=== PATIENT | male | born 1980 | race Two or more races ===

== ENCOUNTER 2020-01-26 14:35 | Inpatient (IN) | payer MEDICAID ==
[~2020-01-26] VITALS: Ht 162.6 cm; Wt 88.0 kg
[2020-01-26] MEDS ORDERED: ACETAMINOPHEN ES 500 MG TABLET PO ONE (15:00)
--- NOTE | 2020-01-26 15:00 | NUR ---
Direct bed to Negative Pressure Room. +Fever/cough/tachycardia and hypoxia. O2 sats on RA - 91% Nasal Cannula Applied
[2020-01-26 15:05] LABS: BASOPHILS % (AUTO) 0.6 % (0.0-2.0); HEMATOCRIT 49 % (39-51); HEMOGLOBIN 16.8 g/dL (13.5-17.5); LYMPHOCYTES # (AUTO) 1.1 /CMM (0.8-4.8); LYMPHOCYTES % (AUTO) 21.3 % (20.0-44.0); MEAN CORPUSCULAR HGB CONC 34 g/dl (31.0-36.0); MEAN CORPUSCULAR VOLUME 87 fL (80-96); MONOCYTES # (AUTO) 0.3 /CMM (0.1-1.30); MONOCYTES % (AUTO) 6.1 % (2.0-12.0); NEUTROPHILS # (AUTO) 3.8 /CMM (1.8-8.9); PLATELET COUNT (AUTO) 128 /CMM (150-450); RED BLOOD CELL COUNT(AUTO) 5.61 MIL/uL (4.5-6.0); WHITE BLOOD COUNT (AUTO) 5.3 K/uL (4.3-11.0)
[2020-01-26] MEDS ORDERED: ACETAMINOPHEN ES 500 MG TABLET ONE (15:10)
[2020-01-26 15:16] LABS: CALCIUM, SERUM 8.4 mg/dL (8.5-10.1); CARBON DIOXIDE 24 mmol/L (21-32); CHLORIDE 96 mmol/L (98-107); GLUCOSE 200 mg/dL (74-106); POTASSIUM 3.6 mmol/L (3.5-5.1); SODIUM SERUM 133 mmol/L (136-145); UREA NITROGEN, BLOOD 15 mg/dL (7-18)
[2020-01-26 15:26] LABS: D-DIMER 0.38 mg/L(FEU (0.17-0.50)
[2020-01-26 15:30] LABS: ALANINE AMINOTRANSFERASE 60 U/L (12-78); ALBUMIN 2.8 g/dL (3.4-5.0); ALKALINE PHOSPHATASE 86 U/L (46-116); ASPARTATE AMINOTRANSFERASE 50 U/L (15-37); B-TYPE NATRIURETIC PEPTIDE 13 PG/ML (0-125); BILIRUBIN,TOTAL 0.6 mg/dL (0.2-1.0); TOTAL PROTEIN, SERUM 7.7 g/dL (6.4-8.2)
[2020-01-26 15:43] LABS: CREATINE KINASE, TOTAL 79 U/L (39-308); FERRITIN 560 ng/mL (8-388)
[2020-01-26 15:44] LABS: C-REACTIVE PROTEIN 17.1 mg/dL (0.0-0.9)
--- NOTE | 2020-01-26 15:52 | NUR ---
PT TO CT
[2020-01-26] MEDS ORDERED: ONDANSETRON HCL/PF 4 MG/2 ML VIAL IVP PRN (16:30)
[2020-01-26] MEDS ORDERED: Z GUARD REMEDY 2 OZ OINT TP PRN (16:30)
[2020-01-26] MEDS ORDERED: ZOLPIDEM TARTRATE 5 MG TABLET PO PRN (16:30)
[2020-01-26] MEDS ORDERED: MORPHINE SULFATE INJ 2 MG/ML DISP.SYRIN IV PRN (16:30)
--- NOTE | 2020-01-26 17:02 | NUR ---
[facility] - [facility]AR KAUR - PAGED VIA EXCHANGE
[2020-01-26 17:09] LABS: APPEARANCE,URINE Slightly Cloudy (CLEAR); BILIRUBIN,URINE MODERATE (NEGATIVE); BLOOD, URINE Moderate Ery/uL (NEGATIVE); COLOR,URINE Yellow (YELLOW); KETONES,URINE 40 (NEGATIVE); LEUKOCYTE ESTERASE ,URINE Small (NEGATIVE); NITRITE, URINE Negative (NEGATIVE); PROTEIN,URINE >=300 mg/dl (NEGATIVE); UGLUCOSE Negative (NEGATIVE); UROBILINOGEN,URINE 0.2 EU/dL (0.2)
[2020-01-26 17:25] LABS: BACTERIA,URINE 1+ /HPF (None Seen); WBC,URINE 21-50 /HPF (0-3)
[2020-01-26] MEDS ORDERED: MORPHINE SULFATE INJ 4 MG/ML DISP.SYRIN ONE (17:32)
[2020-01-26] MEDS ORDERED: ONDANSETRON HCL/PF 4 MG/2 ML VIAL ONE (17:32)
--- NOTE | 2020-01-26 17:32 | NUR ---
PT STIL COMPLAINING OF ABD PAIN. MD MADE AWARE. VERBAL ORDER RECEIVED TO GIVE MORPHINE 4MG IV X 1 AND ZOFRAN 4MG IV X 1. NOTED AND WILL CARRY OUT
--- NOTE | 2020-01-26 17:38 | NUR ---
report given to Isaac RN for for continuity of care on Tele floor
--- NOTE | 2020-01-26 17:45 | NUR ---
Pt assigned to 111-2
[2020-01-26 17:46] LABS: C-REACTIVE PROTEIN 17.8 mg/dL (0.0-0.9)
[2020-01-26] MEDS ORDERED: MORPHINE SULFATE INJ 2 MG/ML DISP.SYRIN IV ONE (18:00)
[2020-01-26] MEDS ORDERED: ONDANSETRON HCL/PF - ER 4 MG/2 ML VIAL IV ONE (18:00)
--- NOTE | 2020-01-26 18:18 | NUR ---
PT TRANSPORTED TO UNIT ON GURPATERSON WITH EMT AND RN AT BEDSIDE W/ ACLS PROTOCOL.
--- NOTE | 2020-01-26 19:15 | NUR ---
RN NOTES: RECEIVED PATIENT LYING COMFORTABLY IN BED,ON OXYGEN INHALATION AT 2-3L/MIN VIA NC,NON LABORED BREATHING, ISOLATION PRECAUTION OBSERVED,A/0X3-4, ORIENTED TO UNIT AND STAFF, INSTRUCTED IF HE DO NOT FEEL OK OR ANY DISCOMFORT HE WILL LET THE NURSES KNOW, KEPT CALL LIGHT WITHIN EASY REACH.IV CANNULA RH G#20 INTACT AND PATENT WITH IVF OD NS AT 75 ML/HR ONGOING,HE REQUEST HE WANTS TO TAKE A REST, RN INSTRUCTED HIM WILL ASSESSED HIS SKIN LATER TO TAKE PICTURE OF BILATERAL LOWER EXTREMITIES BLISTER, HE SAID "YES LATER PLEASE".
[2020-01-26] MEDS: HYDROXYCHLOROQUINE 200 MG TABLET PO SCH (19:49)
[2020-01-26 20:00] VITALS: BP 114/71
--- NOTE | 2020-01-26 20:03 | NUR ---
RN NOTES: CONFIRMED WITH OUTGOING NURSE PLAQUENIL NOT YET GIVEN, FIRST DOSE GIVEN.ENOURAGE TO INCREASE FLUIDS TOLERATED.
[2020-01-26 22:00] VITALS: BP 127/77
[2020-01-27] VITALS (8 sets, daily range): BP systolic 105–127; BP diastolic 70–84
--- NOTE | 2020-01-27 01:00 | NUR ---
RN NOTES: PATIENT WAS ASSISTED TO THE BATHROOM, HE HAD WATERY STOOL, ABLE TO WALK WITH ASSIST, IV HYDRATION CONTINUED, NEEDS ATTENDED, ISOLATION PRECAUTION OBSERVED, REMAIN IN SINUS RHYTHM RATE-95.
[2020-01-27] MEDS: IV NS 0.9% 1,000 ML IV PRN ×2 (06:00→20:25)
[2020-01-27] MEDS: HYDROCODONE/APAP 5/325MG 1 EACH TABLET PO PRN ×2 (06:10→11:10)
--- NOTE | 2020-01-27 06:10 | NUR ---
RN NOTES: IVF ON NS COMPLETED AND REPLACED WITH NEW BOTTLE OF NS AT 75 ML/HR, HE HAD ANOTHER DIARRHEA(2ND TIME), ASSISTED TO THE BATHROOM, WATERY STOOL, HE COMPLAINED OF BODY ACHE AND STERNAL PAIN WHEN HE COUGH, PAIN MEDICATION GIVEN PER PATIENT REQUEST.NON PHARMACOLOGIC INTERVENTION RENDERED.
--- NOTE | 2020-01-27 06:58 | NUR ---
RN NOTES: CALLS AND NEEDS ATTENDED, KEPT RESTED, ON CLOSE WATCH, STILL WITH DIARRHEA, HYDRATED, ON HAND COLLATOR RATE-92, IVF CONTINUED, HE FEELS MUCH BETTER AFTER PAIN MEDICATION, ENDORSED FOR CONTINUITY OF CARE.
[2020-01-27 08:04] LABS: BASOPHILS % (AUTO) 0.3 % (0.0-2.0); HEMATOCRIT 48 % (39-51); HEMOGLOBIN 16.3 g/dL (13.5-17.5); LYMPHOCYTES % (AUTO) 23.4 % (20.0-44.0); MEAN CORPUSCULAR HGB CONC 34 g/dl (31.0-36.0); MEAN CORPUSCULAR VOLUME 88 fL (80-96); MONOCYTES # (AUTO) 0.3 /CMM (0.1-1.30); MONOCYTES % (AUTO) 6.9 % (2.0-12.0); NEUTROPHILS # (AUTO) 3.1 /CMM (1.8-8.9); NEUTROPHILS % (AUTO) 69.4 % (43.0-81.0); PLATELET COUNT (AUTO) 116 /CMM (150-450); RED BLOOD CELL COUNT(AUTO) 5.48 MIL/uL (4.5-6.0); WHITE BLOOD COUNT (AUTO) 4.5 K/uL (4.3-11.0)
[2020-01-27 08:19] LABS: CALCIUM, SERUM 8.3 mg/dL (8.5-10.1); CREATININE 0.9 mg/dL (0.6-1.3); MAGNESIUM 1.9 mg/dL (1.8-2.4); PHOSPHORUS 2.9 mg/dL (2.5-4.9); POTASSIUM 3.9 mmol/L (3.5-5.1)
[2020-01-27 08:59] LABS: D-DIMER 0.45 mg/L(FEU (0.17-0.50)
[2020-01-27 10:44] LABS: THYROID STIMULATING HORMONE 1.907 uIU/mL (0.358-3.74)
[2020-01-27] MEDS: HYDROXYCHLOROQUINE 200 MG TABLET PO SCH (10:52)
[2020-01-27] MEDS: PANTOPRAZOLE 40 MG TABLET.DR PO SCH (10:53)
[2020-01-27] MEDS ORDERED: POTASSIUM CHLORIDE 20 MEQ TAB.PRT.SR PO SCH (14:00)
[2020-01-27] MEDS ORDERED: DEXTROSE 50%-WATER 50 ML DISP.SYRIN IV PRN (15:00)
[2020-01-27] MEDS: METFORMIN 500 MG TABLET PO SCH (16:58)
[2020-01-27] MEDS: CEFTRIAXONE 1 G in IV D5W 50 ML IV SCH (16:58)
[2020-01-27] MEDS: BLOOD SUGAR DIAGNOSTIC 1 EACH STRIP IN SCH ×2 (17:55→21:49)
[2020-01-27] MEDS: INSULIN REGULAR, HUMAN 100 UNIT/ML 3 ML VIAL SQ PRN ×2 (18:00→21:47)
--- NOTE | 2020-01-27 19:11 | NUR ---
Handoff with night team registered nurse. Nathan Rodriguez RN
--- NOTE | 2020-01-27 20:00 | NUR ---
SEPARATOR TENDER NOTES, RECEIVED PATIENT COMFORTABLY IN BED,ON O2 AT 2-3L/MIN VIA NC,NO SOB NO DISTRESS NON LABORED BREATHING, ISOLATION PRECAUTION OBSERVED,A/0X3-4, CALL LIGHT WITHIN EASY REACH.IV CANNULA RH G#20 INTACT AND PATENT WITH IVF OF NS AT 75 ML/HR INFUSING WELL, ALL DUE MEDS GIVEN ORDERED , PTS USING URINALS , INSTRUCT PTS TO CALL FOR ASSISTANCE .KEPT PTS CLEAN DRY AND COMFORTABLE.
[2020-01-27] MEDS: ACETAMINOPHEN 325 MG TABLET PO PRN (20:16)
--- NOTE | 2020-01-27 20:16 | NUR ---
DANCE COACH NOTES PTS NOTED WITH TEMP OF 101.6 , COOLING MEASURES APPLIED AND TYLENOL 650MG VIA PO GIVEN ORDERED.WILL CONTINUE TO MONITOR PTS.
--- NOTE | 2020-01-27 21:30 | NUR ---
AUTOMOBILE SPRING REPAIRER NOTES PTS C/O OF COUGH , SPOKE TO BRANDI PATTERSON WITH ORDER JUICEITUSSIN DM Q 4HRS VIA PO PRN FOR COUGH , ORDER NOTED AND CARRIED OUT.
[2020-01-27] MEDS: GUAIFENESIN/D-METHORPHAN HB 5 ML UDC PO PRN (21:49)
--- NOTE | 2020-01-27 22:00 | NUR ---
WALLPAPER INSPECTOR NOTES RECEIVED A CALL FROM LAB SPOKE TO CHRISTINE BLOCK TESTING IS POSITIVE , CHARGE NURSE MADE AWARE AND SO WITH ELECTRONIC PREPRESS TECHNICIAN.PRECAUTIONARY MEASURES MAINTAINED.
--- NOTE | 2020-01-27 23:13 | NUR ---
WIRELESS CELLULAR TECHNICIAN NOTES BLOOD SUGAR FOR 10PM IS 187MG/DL 3 UNITS OF REGULAR INSULIN GIVEN PER SLIDING SCALE. WILL CHECK BS AGAIN IN AM.PTS OFFERED SNACK.
[2020-01-28] VITALS: BP 108/68
[2020-01-28] MEDS: GUAIFENESIN/D-METHORPHAN HB 5 ML UDC PO PRN ×2 (01:56→21:19)
[2020-01-28 04:00] VITALS: BP 103/70
--- NOTE | 2020-01-28 06:27 | NUR ---
MUSEUM TECHNICIAN NOTES PTS REMAINS ON BED ON O2 AT 3LITERS OF NC , ALL NEEDS ATTENDED TOO CALL LIGHT WITHIN REACH ,PTS IS POSITIVE COVID PRECAUTIONARY MEASURES OBSERVED AT ALL TIMES . WILL ENDORSE TO RN DAY SHIFT FOR CONTINUITY OF CARE.
[2020-01-28 07:27] LABS: D-DIMER 0.49 mg/L(FEU (0.17-0.50)
[2020-01-28] MEDS: BLOOD SUGAR DIAGNOSTIC 1 EACH STRIP IN SCH ×4 (07:37→21:29)
[2020-01-28] MEDS: INSULIN REGULAR, HUMAN 100 UNIT/ML 3 ML VIAL SQ PRN ×4 (07:39→21:19)
[2020-01-28] MEDS: PANTOPRAZOLE 40 MG TABLET.DR PO SCH (07:40)
[2020-01-28 08:00] VITALS: BP_SYST 130; BP_SYST 138; BP_DIAS 72
[2020-01-28] MEDS: METFORMIN 500 MG TABLET PO SCH ×2 (09:18→16:09)
[2020-01-28] MEDS: HYDROXYCHLOROQUINE 200 MG TABLET PO SCH (09:18)
[2020-01-28] MEDS: IV NS 0.9% 1,000 ML IV PRN (09:25)
[2020-01-28 12:00] VITALS: BP 128/68
[2020-01-28 16:00] VITALS: BP 133/76
[2020-01-28] MEDS: HYDROCODONE/APAP 5/325MG 1 EACH TABLET PO PRN (16:09)
[2020-01-28] MEDS: CEFTRIAXONE 1 G in IV D5W 50 ML IV SCH (16:10)
--- NOTE | 2020-01-28 18:55 | NUR ---
Handoff with night team registered nurse. Nathan Rodriguez RN
--- NOTE | 2020-01-28 19:30 | NUR ---
RETURNED TELEPHONE EQUIPMENT APPRAISER NOTES RECEIVED PATIENT IN BED AOX4, IN STABLE CONDITION. BREATHING NORMAL NO SOB NOTED. NO S/S OF ACUTE DISTRESS NOTED. TELE MONITOR READING SR. CONTINUES ON OXYGEN 3L/MIN VIA NC. IV SITE RH G#20 INTACT PATENT FLUSHED WELL. SAFETY MEASURES IN PLACE, BED IN LOW POSITION. CALL LIGHT WITHIN REACH. WILL CONT TO MONITOR.
[2020-01-28 20:00] VITALS: BP 102/68
[2020-01-28] MEDS: ACETAMINOPHEN 325 MG TABLET PO PRN (21:19)
--- NOTE | 2020-01-28 21:19 | NUR ---
WIRE BASKET MAKER NOTES TEMP 99.1,C/O OF COUGH. PRN TYLENOL AND ROBITUSSIN GIVEN ORDERED. WILL CONT TO MONITOR AND REASSESS. ALL SAFETY MEASURES IN PLACE. CALL LIGHT WITHIN REACH.
--- NOTE | 2020-01-28 22:19 | NUR ---
BUILDING CARPENTER NOTE MEDICATIONS WERE EFFECTIVE PATIENT RESTING COMFORTABLY NO COUGH NOTED TEMP NOTED 98.2.
[2020-01-29] VITALS (11 sets, daily range): BP systolic 99–132; BP diastolic 59–79
--- NOTE | 2020-01-29 06:07 | NUR ---
MEDICAL DIRECTOR OCCUPATIONAL HEALTH NOTES PATIENT REMAINED STABLE THROUGH OUT THE SHIFT. NO S/S OF ACUTE DISTRESS NOTED. ALL DUE MEDICATIONS WERE GIVEN ALONG WITH PRN'S ORDERED PATIENT TOLERATED WELL. CONTINUES ON OXYGEN 3L/MIN VIA NC. SAFETY MEASURES IN PLACE, BED IN LOW POSITION. CALL LIGHT WITHIN REACH. WILL ENDORSE PATIENT TO AM NURSE FOR XIMENA.
[2020-01-29 06:41] LABS: BASOPHILS % (AUTO) 0.2 % (0.0-2.0); EOSINOPHILS % (AUTO) 0.4 % (0.0-6.0); HEMATOCRIT 41 % (39-51); HEMOGLOBIN 14.1 g/dL (13.5-17.5); LYMPHOCYTES # (AUTO) 0.7 /CMM (0.8-4.8); LYMPHOCYTES % (AUTO) 13.7 % (20.0-44.0); MEAN CORPUSCULAR HGB CONC 34 g/dl (31.0-36.0); MEAN CORPUSCULAR VOLUME 87 fL (80-96); MONOCYTES # (AUTO) 0.3 /CMM (0.1-1.30); MONOCYTES % (AUTO) 4.9 % (2.0-12.0); NEUTROPHILS # (AUTO) 4.2 /CMM (1.8-8.9); NEUTROPHILS % (AUTO) 80.8 % (43.0-81.0); PLATELET COUNT (AUTO) 168 /CMM (150-450); RED BLOOD CELL COUNT(AUTO) 4.77 MIL/uL (4.5-6.0); WHITE BLOOD COUNT (AUTO) 5.2 K/uL (4.3-11.0)
[2020-01-29 06:51] LABS: ALBUMIN 2.1 g/dL (3.4-5.0); BILIRUBIN,TOTAL 0.7 mg/dL (0.2-1.0); CALCIUM, SERUM 7.9 mg/dL (8.5-10.1); CREATININE 0.7 mg/dL (0.6-1.3); MAGNESIUM 1.8 mg/dL (1.8-2.4); PHOSPHORUS 2.7 mg/dL (2.5-4.9); POTASSIUM 3.5 mmol/L (3.5-5.1); TOTAL PROTEIN, SERUM 6.6 g/dL (6.4-8.2)
--- NOTE | 2020-01-29 07:30 | NUR ---
rn notes received patient in bed, awake, a/0x4,able to make needs known. with oxygen support via nasal cannula at 3lpm, with use of accessory muscle on breathing but patient denies shortness of breath or pain of any kind. sinus rhythm on the monitor with hr on the 90s. patient able to ambulate. encourage to call for help or assistance if needed but also made aware of the isolation precautions necessary. safety measures observed and maintained. call light place within reach.
--- NOTE | 2020-01-29 09:18 | NUR ---
rn notes received call from laboratory, spoke to ivana. result for positive covid test. patient and charge nurse made aware Addendum: 01/29/20 at 1935 by JUNIOR WYNN RN patient denies shortness of breath at this time. explained to patient what are to be expected with the help of roopa (aylin umaña cna) patient verbalized understanding
[2020-01-29] MEDS: BLOOD SUGAR DIAGNOSTIC 1 EACH STRIP IN SCH ×4 (09:29→22:04)
[2020-01-29] MEDS: HYDROXYCHLOROQUINE 200 MG TABLET PO SCH (09:29)
[2020-01-29] MEDS: PANTOPRAZOLE 40 MG TABLET.DR PO SCH (09:29)
[2020-01-29] MEDS: METFORMIN 500 MG TABLET PO SCH ×2 (09:29→18:05)
[2020-01-29] MEDS: INSULIN REGULAR, HUMAN 100 UNIT/ML 3 ML VIAL SQ PRN ×4 (09:30→22:07)
[2020-01-29] MEDS ORDERED: POTASSIUM CHLORIDE 20 MEQ TAB.PRT.SR PO SCH (13:00)
[2020-01-29] MEDS ORDERED: POTASSIUM CHLORIDE 20 MEQ TAB.PRT.SR PO ONE ×2 (14:30→15:30)
[2020-01-29 14:41] LABS: C-REACTIVE PROTEIN 27.6 mg/dL (0.0-0.9)
[2020-01-29] MEDS: CEFTRIAXONE 1 G in IV D5W 50 ML IV SCH (16:16)
[2020-01-29] MEDS ORDERED: SIMETHICONE 80 MG TAB.CHEW PO PRN (16:30)
--- NOTE | 2020-01-29 17:00 | NUR ---
rn notes relayed abg results to Dr. Dimas. awaiting response
[2020-01-29 17:48] LABS: ABG BASE EXCESS 1.3 mmol/L; ABG OXYGEN SATURATION 91.2 % (92.0-98.5); ABG PCO2 36.6 mmHg (35.0-45.0); ABG PH 7.452 (7.350-7.450); ABG PO2 60.1 mmHg (75.0-100.0); AaDO2 219.1 mmHg; COHb 0.7 % (0.5-1.5); MetHb 0.4 % (0.0-1.5); O2Hb 90.2 % (94.0-97.0); SITE, ABG Right Radial
[2020-01-29] MEDS: methylPREDNISolone SOD SUCC 125 MG/2ML VIAL IV SCH (18:04)
[2020-01-29] MEDS ORDERED: AZITHROMYCIN 250 MG TABLET PO ONE ×2 (19:00→20:30)
--- NOTE | 2020-01-29 19:00 | NUR ---
rn notes obtained order to transfer patient to sukh, titrate oxygen to 8liters and abg in am. order readback noted and carried out
--- NOTE | 2020-01-29 19:00 | NUR ---
rn notes endorsed patient for continuity of care. patient denies shortness of breath or any pain at this time. on 6LPMof oxygen. all nursing needs attended and met. safety measures in place. call light within reach
--- NOTE | 2020-01-29 19:30 | NUR ---
RN NOTES, ENDORSED BY CARMEN PACHECO THAT PATIENT NEEDS TO BE TRANSFER TO ICU FOR CONTINUITY OF CARE DUE TO NEW ORDER FOR MEDICATION THAT CAN NOT BE ADMINISTER IN THIS FLOOR.
--- NOTE | 2020-01-29 19:45 | NUR ---
RN NOTES, PATIENT TRANSFERRED TO ICU WITH ALL ACLS PROTOCOL, NO SOB/ACUTE DISTRESS NOTED PUT PATIENT ON FACE MASK AT 8LPM 02 SAT AT 02% AT THIS TIME, TRANSFERRED WITH CHART, BELONGING, AND MEDS, ENDORSED TO TAMRA MORALES IN ICU.
--- NOTE | 2020-01-29 19:50 | NUR ---
Received patient from SHERITA,being upgraded for closer monitory. Awake alert,only speaks Indonesian but understands a little Maori ,follows commands,cooperative. With O2 via simple face mask 8 L/min, + SOB,tachypneic, labored breathing ,even at rest, worst on exertion.
[2020-01-29] MEDS ORDERED: diphenhydrAMINE HCL 50 MG/ML VIAL IV ONE (20:30)
[2020-01-29] MEDS ORDERED: ACETAMINOPHEN 325 MG TABLET PO ONE (20:30)
[2020-01-29] MEDS ORDERED: TOCILIZUMAB 400 MG in IV NS 0.9% 80 ML IV ONE (21:00)
[2020-01-29] MEDS ORDERED: HYDROXYCHLOROQUINE 200 MG TABLET PO SCH (21:00)
--- NOTE | 2020-01-29 22:00 | NUR ---
gets OOB to the commode,a little short of breath but tolerated getting up.SOB on exertion
[2020-01-30] VITALS (41 sets, daily range): BP systolic 94–139; BP diastolic 54–92
--- NOTE | 2020-01-30 | NUR ---
Asleep, less labored breathing while asleep, RR=22=25, saturating 96 %.
--- NOTE | 2020-01-30 04:00 | NUR ---
Asleep but breathing better and non labored at rest/while asleep. Saturating 94-96%,still on simple face mask 8 Litres O2
[2020-01-30 04:42] LABS: BASOPHILS % (AUTO) 0.3 % (0.0-2.0); HEMATOCRIT 45 % (39-51); HEMOGLOBIN 15.1 g/dL (13.5-17.5); LYMPHOCYTES # (AUTO) 0.6 /CMM (0.8-4.8); LYMPHOCYTES % (AUTO) 13.4 % (20.0-44.0); MEAN CORPUSCULAR HGB CONC 34 g/dl (31.0-36.0); MEAN CORPUSCULAR VOLUME 89 fL (80-96); MONOCYTES # (AUTO) 0.2 /CMM (0.1-1.30); MONOCYTES % (AUTO) 3.9 % (2.0-12.0); NEUTROPHILS # (AUTO) 3.7 /CMM (1.8-8.9); NEUTROPHILS % (AUTO) 82.4 % (43.0-81.0); PLATELET COUNT (AUTO) 238 /CMM (150-450); RED BLOOD CELL COUNT(AUTO) 5.04 MIL/uL (4.5-6.0); WHITE BLOOD COUNT (AUTO) 4.5 K/uL (4.3-11.0)
[2020-01-30 04:49] LABS: ALBUMIN 2.2 g/dL (3.4-5.0); BILIRUBIN,TOTAL 0.5 mg/dL (0.2-1.0); CALCIUM, SERUM 8.8 mg/dL (8.5-10.1); CREATININE 1.1 mg/dL (0.6-1.3); MAGNESIUM 2.2 mg/dL (1.8-2.4); PHOSPHORUS 4.3 mg/dL (2.5-4.9); POTASSIUM 3.7 mmol/L (3.5-5.1); TOTAL PROTEIN, SERUM 7.7 g/dL (6.4-8.2)
[2020-01-30 05:40] LABS: C-REACTIVE PROTEIN 34.2 mg/dL (0.0-0.9)
--- NOTE | 2020-01-30 07:00 | NUR ---
Patient stable,still on simple face mask 8 liters O2,breathing less labored,looks comfortable.Report given to Maury MORALES
[2020-01-30] MEDS: PANTOPRAZOLE 40 MG TABLET.DR PO SCH (07:49)
[2020-01-30] MEDS: BLOOD SUGAR DIAGNOSTIC 1 EACH STRIP IN SCH ×4 (07:50→22:10)
--- NOTE | 2020-01-30 08:00 | NUR ---
KEY PUNCH OPERATOR Notes Received patient from overnight associate. On assessment patient appears to have difficulty breathing. Pausing every 4-6 words to take another breath. Crackles and rhonchi heard BL. Diminished lung sounds BL lower lungs. Patient was coughing blood visible in simple face mask. MD Manda Dimas aware. Patient is on simple face mask 8L. Alert and oriented x3. Temperature 98.9. SR 60s. 02 saturation 90%. Voids in urinal, 500mL out on assessment. Patient had 2 BMs with overnight associate. Skin intact. On a regular diet. IV 20g SL flushes well. Accucheck ACHS 196 3 units given. Per shift hand off patient is positive for UTI GBS+. On 01/25 SARS COV2 test came back +. Bed in lowest position call light within reach, toileting offered. Will continue to monitor.
[2020-01-30] MEDS: HYDROXYCHLOROQUINE 200 MG TABLET PO SCH ×2 (08:14→20:05)
[2020-01-30] MEDS: methylPREDNISolone SOD SUCC 125 MG/2ML VIAL IV SCH (08:16)
[2020-01-30] MEDS: METFORMIN 500 MG TABLET PO SCH ×2 (08:23→17:15)
[2020-01-30] MEDS ORDERED: POTASSIUM CHLORIDE 20 MEQ TAB.PRT.SR PO SCH (09:00)
--- NOTE | 2020-01-30 09:14 | NUR ---
BARREL INSPECTOR Notes Patient was instructed to prone in Georgian. He refused due to the fact that he says he cannot tolerate the pressure on his stomach. Will continue to monitor.
[2020-01-30 09:35] LABS: ABG BASE EXCESS 1.5 mmol/L; ABG OXYGEN SATURATION 90.8 % (92.0-98.5); ABG PCO2 43.9 mmHg (35.0-45.0); ABG PH 7.402 (7.350-7.450); ABG PO2 60.5 mmHg (75.0-100.0); COHb 0.9 % (0.5-1.5); MetHb 0.3 % (0.0-1.5); O2Hb 89.7 % (94.0-97.0); SITE, ABG Right Radial; VENT MODE, BG Simple Mask
[2020-01-30] MEDS: INSULIN REGULAR, HUMAN 100 UNIT/ML 3 ML VIAL SQ PRN ×4 (11:08→22:06)
--- NOTE | 2020-01-30 11:11 | NUR ---
PIANO MACHINE OPERATOR Notes 3 units of insulin given at 08:50 for BS 196. Unable to scan due to infection control reasons for COVID + isolation. Charted now.
--- NOTE | 2020-01-30 16:00 | NUR ---
NAIL EXPERT Notes Called pharmacy ceftriaxone IV not in casette. Said will send one up. Will follow up if needed.
[2020-01-30] MEDS: CEFTRIAXONE 1 G in IV D5W 50 ML IV SCH (17:02)
--- NOTE | 2020-01-30 19:30 | NUR ---
EPIC AMBULATORY SPECIALISTS NOTES RECEIVED PATIENT IN BED AOX4, IN STABLE CONDITION. BREATHING NORMAL NO SOB NOTED. NO S/S OF ACUTE DISTRESS NOTED. TELE MONITOR READING SR. CONTINUES ON OXYGEN 8L/MIN VIA SIMPLE MASK. IV SITE LT HAND G#20 INTACT PATENT FLUSHED WELL. ISOLATION PRECAUTIONS MAINTAINED ALL THE TIMES. SAFETY MEASURES IN PLACE, BED IN LOW POSITION. CALL LIGHT WITHIN REACH. WILL CONT TO MONITOR.
[2020-01-30] MEDS ORDERED: AZITHROMYCIN 250 MG TABLET PO SCH (20:00)
[2020-01-31] VITALS (24 sets, daily range): BP systolic 94–152; BP diastolic 51–118
[2020-01-31 04:59] LABS: BASOPHILS % (AUTO) 0.1 % (0.0-2.0); EOSINOPHILS % (AUTO) 0.1 % (0.0-6.0); HEMATOCRIT 43 % (39-51); HEMOGLOBIN 14.6 g/dL (13.5-17.5); LYMPHOCYTES # (AUTO) 0.8 /CMM (0.8-4.8); LYMPHOCYTES % (AUTO) 11.5 % (20.0-44.0); MEAN CORPUSCULAR HGB CONC 34 g/dl (31.0-36.0); MEAN CORPUSCULAR VOLUME 88 fL (80-96); MONOCYTES # (AUTO) 0.6 /CMM (0.1-1.30); MONOCYTES % (AUTO) 7.7 % (2.0-12.0); NEUTROPHILS # (AUTO) 5.8 /CMM (1.8-8.9); NEUTROPHILS % (AUTO) 80.6 % (43.0-81.0); PLATELET COUNT (AUTO) 278 /CMM (150-450); RED BLOOD CELL COUNT(AUTO) 4.93 MIL/uL (4.5-6.0); WHITE BLOOD COUNT (AUTO) 7.2 K/uL (4.3-11.0)
[2020-01-31 05:11] LABS: BILIRUBIN,TOTAL 0.3 mg/dL (0.2-1.0); CALCIUM, SERUM 8.3 mg/dL (8.5-10.1); CREATININE 0.9 mg/dL (0.6-1.3); MAGNESIUM 2.3 mg/dL (1.8-2.4); PHOSPHORUS 3.7 mg/dL (2.5-4.9); POTASSIUM 4.1 mmol/L (3.5-5.1); TOTAL PROTEIN, SERUM 6.6 g/dL (6.4-8.2)
--- NOTE | 2020-01-31 07:12 | NUR ---
MANGLE PRESS CATCHER NOTE PATIENT RESTED WELL DURING NIGHT. NO S/S OF DISTRESS NOTED. PATIENT DENIES ANY PAIN OR SOB. KEPT CLEAN DRY AND COMFORTABLE. ALL NEEDS ATTENDED. SAFETY MEASURES IN PLACE, CALL LIGHT WITHIN REACH. WILL ENDORSE PATIENT TO AM NURSE.
[2020-01-31] MEDS: PANTOPRAZOLE 40 MG TABLET.DR PO SCH (07:54)
[2020-01-31] MEDS: BLOOD SUGAR DIAGNOSTIC 1 EACH STRIP IN SCH ×4 (08:11→21:24)
--- NOTE | 2020-01-31 08:16 | NUR ---
RN OPENING NOTES RECEIVED PATIENT RESTING IN BED COMFORTABLY, DENIES ANY SOB OR RESP DISTRESS. DENIES CHEST PAIN. PT IS AOX4, VERBAL, [place]ONG [place]ER SPEAKING, AND AMBULATORY. TELE MONITOR SHOWING SR. SKIN IS INTACT. IV SITE ON L HAND 20 G IS PATENT AND INTACT, NO FLUIDS AT THIS TIME. SAFETY MEASURES HAVE BEEN IMPLEMENTED, CALL LIGHT IS WITHIN REACH, BED IS IN LOWEST AND LOCKED POSITION, SIDE RAILS UP X2, WILL CONTINUE TO MONITOR FOR ANY CHANGES.
[2020-01-31] MEDS: methylPREDNISolone SOD SUCC 125 MG/2ML VIAL IV SCH (09:52)
[2020-01-31] MEDS: METFORMIN 500 MG TABLET PO SCH ×2 (09:52→16:47)
[2020-01-31] MEDS: HYDROXYCHLOROQUINE 200 MG TABLET PO SCH ×2 (09:52→20:48)
[2020-01-31] MEDS: INSULIN REGULAR, HUMAN 100 UNIT/ML 3 ML VIAL SQ PRN ×3 (10:00→21:25)
[2020-01-31] MEDS: CEFTRIAXONE 1 G in IV D5W 50 ML IV SCH (15:37)
--- NOTE | 2020-01-31 19:19 | NUR ---
RN CLOSING NOTES PATIENT IS RESTING IN BED COMFORTABLY, WITH MECHANICAL VENT. TOLERATING VENT SETTINGS WELL, NO RESP DISTRESS OR SOB PRESENT. ON DIPRIVAN DRIP AT 10 MCG/MIN. [place] CATH IS PATENT AND INTACT. CONTACT AND DROPLET ISO IMPLEMENTED AND ENFORCED. PT NEEDS HAVE BEEN MET. SAFETY MEASURES HAVE BEEN IMPLEMENTED, CALL LIGHT IS WITHIN REACH, BED IS IN LOWEST AND LOCKED POSITION, SIDE RAILS UP X2, PT HAS BEEN ENDORSED TO NIGHTSHIFT RN FOR XIMENA.
--- NOTE | 2020-01-31 19:30 | NUR ---
CONCRETE BUCKET LOADER NOTES, RECEIVED PATIENT RESTING IN BED, BREATHING EVEN AND UNLABORED, NO SOB OR RESP DISTRESS NOTED, ON SIMPLE MASK AT 8LPM WITH O2 SAT LEVEL >94%, DENIES PAIN OR DISCOMFORT, A/ OX4, [place] SPEAKING, NSR ON TELE MONITOR, IV SITE ON L HAND 20 G S/L PATENT AND INTACT, SAFETY MEASURES IN PLACED, CALL LIGHT IS WITHIN REACH, BED LOCKED, AND LOWEST POSITION, SIDE RAILS UP X2, WILL CONTINUE TO MONITOR CLOSELY.
[2020-01-31] MEDS: AZITHROMYCIN 250 MG TABLET PO SCH (20:49)
[2020-02-01] VITALS (16 sets, daily range): BP systolic 88–120; BP diastolic 45–74
[2020-02-01 05:17] LABS: BASOPHILS % (AUTO) 0.2 % (0.0-2.0); EOSINOPHILS % (AUTO) 0.9 % (0.0-6.0); HEMATOCRIT 44 % (39-51); HEMOGLOBIN 14.6 g/dL (13.5-17.5); LYMPHOCYTES # (AUTO) 1.3 /CMM (0.8-4.8); LYMPHOCYTES % (AUTO) 22.3 % (20.0-44.0); MEAN CORPUSCULAR HGB CONC 33 g/dl (31.0-36.0); MEAN CORPUSCULAR VOLUME 87 fL (80-96); MONOCYTES # (AUTO) 0.4 /CMM (0.1-1.30); MONOCYTES % (AUTO) 6.2 % (2.0-12.0); NEUTROPHILS # (AUTO) 4.2 /CMM (1.8-8.9); NEUTROPHILS % (AUTO) 70.4 % (43.0-81.0); PLATELET COUNT (AUTO) 312 /CMM (150-450); RED BLOOD CELL COUNT(AUTO) 5.01 MIL/uL (4.5-6.0)
[2020-02-01 05:54] LABS: CALCIUM, SERUM 8.4 mg/dL (8.5-10.1); CREATININE 0.9 mg/dL (0.6-1.3); MAGNESIUM 2.2 mg/dL (1.8-2.4); PHOSPHORUS 4.4 mg/dL (2.5-4.9); POTASSIUM 3.9 mmol/L (3.5-5.1)
--- NOTE | 2020-02-01 06:26 | NUR ---
RN NOTES, CRITICAL LAB REPORTED FROM LAB FOR POTASSIUM 2.8, INFORMED AZAM MARTE NP AND RECEIVED A NEW ORDER FOR NS 40MEQ POTASSIUM AT 100ML/HR, NOTED AND CARRIED OUT. Addendum: 02/01/20 at 0629 by JACIEL PRINCE RN WRONG ENTRY
--- NOTE | 2020-02-01 07:00 | NUR ---
WORK ENVIRONMENT SAFETY INSPECTOR NOTES, PATIENT RESTING IN BED, BREATHING EVEN AND UNLABORED, SOB AT REST AT TIMES, NO ACUTE RESP DISTRESS NOTED, CONT ON SIMPLE MASK AT 8LPM WITH O2 SAT LEVEL >94%, DENIES PAIN OR DISCOMFORT, CONT NSR ON TELE MONITOR 50S-60S THROUGHOUT THE NIGHT, AFEBRILE, SAFETY MEASURES IN PLACED, CALL LIGHT IS WITHIN REACH, BED LOCKED, AND LOWEST POSITION, SIDE RAILS UP X2, WILL ENDORSE CONTINUITY OF CARE TO ONCOMING NURSE.
[2020-02-01] MEDS: BLOOD SUGAR DIAGNOSTIC 1 EACH STRIP IN SCH ×4 (08:03→23:41)
[2020-02-01] MEDS: HYDROXYCHLOROQUINE 200 MG TABLET PO SCH ×2 (08:39→20:19)
[2020-02-01] MEDS: AZITHROMYCIN 250 MG TABLET PO SCH (08:39)
[2020-02-01] MEDS: PANTOPRAZOLE 40 MG TABLET.DR PO SCH (08:40)
[2020-02-01] MEDS: METFORMIN 500 MG TABLET PO SCH ×2 (08:40→17:24)
[2020-02-01] MEDS: CEFTRIAXONE 1 G in IV D5W 50 ML IV SCH (08:56)
[2020-02-01] MEDS: methylPREDNISolone SOD SUCC 125 MG/2ML VIAL IV SCH (08:56)
[2020-02-01] MEDS: INSULIN REGULAR, HUMAN 100 UNIT/ML 3 ML VIAL SQ PRN ×3 (12:05→23:40)
[2020-02-01] MEDS ORDERED: ROCURONIUM BROMIDE 50 MG/5 ML IV ONE (13:21)
[2020-02-01] MEDS ORDERED: LIDOCAINE 100MG/5ML DISP SYR IV ONE (13:21)
[2020-02-01] MEDS ORDERED: PROPOFOL 200 MG/20 ML VIAL IV ONE (13:21)
--- NOTE | 2020-02-01 18:20 | NUR ---
RN NOTES RECEIVED PATIENT AND BEDSIDE REPORT FROM CARMEN COLLADO. PATIENT ALERT AND ORIENTEDX4, ABLE TO MAKE NEEDS KNOWN. NOT ON ANY FORM OF DISTRESS. PATIENT ATTACHED TO MONITOR AND CONNECTED TO OXYGEN SUPPORT. MADE COMFORTABLE AND WARMTH. ORIENTED TO THE UNIT AND CALL LIGHT. ENCOURAGE TO CALL FOR HELP/ ASSISTANCE. SAFETY MEASURES PUT IN PLACE, CALL LIGHT PLACED WITHIN REACH. WILL CONTINUE TO MONITOR PATIENT ACCORDINGLY
--- NOTE | 2020-02-01 19:00 | NUR ---
RN NOTES ENDORSED FOR CONTINUITY OF CARE. NOT ON ANY FORM OF DISTRESS. BREATHING UNLABORED. TOLERATING OXYGEN SUPPORT VIA FACE MASK. NO COMPLAINTS OF PAIN.
--- NOTE | 2020-02-01 20:00 | NUR ---
sukh rn notes, PATIENT IN BED,A/O X4 BREATHING EVEN AND UNLABORED, no sob noted, NO ACUTE RESP DISTRESS NOTED, CONT ON SIMPLE MASK AT 8LPM WITH O2 SAT LEVEL >93%, DENIES PAIN OR DISCOMFORT, NSR ON TELE MONITOR 66 ,V/S STABLE AFEBRILE, SAFETY MEASURES IN PLACED, CALL LIGHT IS WITHIN REACH, BED LOCKED, AND LOWEST POSITION, ALL DUE MEDS GIVEN ORDERED, KEPT PTS CLEAN DRY AND COMFORTABLE.WILL CONTINUE TO MONITOR PTS.
[2020-02-01] MEDS: GUAIFENESIN/D-METHORPHAN HB 5 ML UDC PO PRN (20:19)
[2020-02-02] VITALS (9 sets, daily range): BP systolic 88–107; BP diastolic 62–79
--- NOTE | 2020-02-02 00:37 | NUR ---
sukh rn notes blood sugar for 10pm is 164 mg /dl 3 units of regular insulin given as ordered.
[2020-02-02 06:28] LABS: BASOPHILS % (AUTO) 0.1 % (0.0-2.0); EOSINOPHILS % (AUTO) 2.1 % (0.0-6.0); HEMATOCRIT 46 % (39-51); HEMOGLOBIN 15.3 g/dL (13.5-17.5); LYMPHOCYTES # (AUTO) 1.4 /CMM (0.8-4.8); LYMPHOCYTES % (AUTO) 22.8 % (20.0-44.0); MEAN CORPUSCULAR HGB CONC 34 g/dl (31.0-36.0); MEAN CORPUSCULAR VOLUME 87 fL (80-96); MONOCYTES # (AUTO) 0.3 /CMM (0.1-1.30); MONOCYTES % (AUTO) 5.6 % (2.0-12.0); NEUTROPHILS # (AUTO) 4.1 /CMM (1.8-8.9); NEUTROPHILS % (AUTO) 69.4 % (43.0-81.0); PLATELET COUNT (AUTO) 308 /CMM (150-450); RED BLOOD CELL COUNT(AUTO) 5.24 MIL/uL (4.5-6.0)
[2020-02-02 07:02] LABS: ALBUMIN 2.4 g/dL (3.4-5.0); BILIRUBIN,DIRECT 0.2 mg/dL (0.0-0.2); BILIRUBIN,TOTAL 0.6 mg/dL (0.2-1.0); CALCIUM, SERUM 8.4 mg/dL (8.5-10.1); CREATININE 0.8 mg/dL (0.6-1.3); MAGNESIUM 2.4 mg/dL (1.8-2.4); PHOSPHORUS 4.5 mg/dL (2.5-4.9); POTASSIUM 3.9 mmol/L (3.5-5.1); TOTAL PROTEIN, SERUM 6.7 g/dL (6.4-8.2)
--- NOTE | 2020-02-02 07:28 | NUR ---
SHERITA RN NOTES ENDORSE TO RN DAY SHIFT FOR CONTINUITY OF CARE.,V/S STABLE AFEBRILE.
--- NOTE | 2020-02-02 08:00 | NUR ---
Patient in bed, not in acute distress. Denies any pain or discomfort. All needs attended. Blood sugar within normal limits. refused breakfast, fluids encouraged. Safety measures maintained at all times. Will cont to monitor
[2020-02-02] MEDS: INSULIN REGULAR, HUMAN 100 UNIT/ML 3 ML VIAL SQ PRN ×4 (09:06→21:57)
[2020-02-02] MEDS: PANTOPRAZOLE 40 MG TABLET.DR PO SCH (09:07)
[2020-02-02] MEDS: methylPREDNISolone SOD SUCC 125 MG/2ML VIAL IV SCH (09:07)
[2020-02-02] MEDS: HYDROXYCHLOROQUINE 200 MG TABLET PO SCH ×2 (09:08→21:38)
[2020-02-02] MEDS: METFORMIN 500 MG TABLET PO SCH ×2 (09:08→17:08)
[2020-02-02] MEDS: BLOOD SUGAR DIAGNOSTIC 1 EACH STRIP IN SCH ×4 (09:33→21:54)
[2020-02-02] MEDS: CEFTRIAXONE 1 G in IV D5W 50 ML IV SCH (09:40)
--- NOTE | 2020-02-02 12:01 | NUR ---
SHERITA RN notes Patient in bed, not in acute distress. VS stable. Patient encouraged to go on prone position per orders. Patient refused to go on prone position. Will cont to instruct to follow the orders.
[2020-02-02] MEDS: ENSURE ENLIVE 237 ML LIQUID (VANILLA) PO SCH ×2 (12:12→17:31)
[2020-02-02] MEDS ORDERED: POTASSIUM CHLORIDE 20 MEQ TAB.PRT.SR PO SCH (14:00)
--- NOTE | 2020-02-02 14:22 | NUR ---
SHERITA RN notes Patient laying in prone position as ordered. No s/s of distress noted. Will cont to monitor
--- NOTE | 2020-02-02 18:25 | NUR ---
SHERITA RN notes Patient in bed, not in acute distress. Denies any pain or discomfort. All needs attended. Dinner taken with good appetite. Safety measures intact. Will endorse to night patrol inspector
--- NOTE | 2020-02-02 19:00 | NUR ---
RN OPENING NOTES RECEIVED PATIENT IN BED, A/OX4, ABLE TO MAKE NEEDS KNOWN. TOLERATING PRONE POSITION. DENIES ANY PAIN. ON OXYGEN 8L VIA MASK, TOLERATING WELL, NO DISTRESS NOTED. ON TELE MONITOR SR WITH HR 60'S. IV SITE LEFT HAND 20G FLUSHING AND INTACT, SALINE LOCKED. PER AM RN, PATIENT AMBULATORY. SAFETY MEASURES IN PLACE; CALL LIGHT WITHIN REACH, SIDE RAILS UP X2, BED LOCKED AND IN LOWEST POSITION. ISOLATION PRECAUTIONS MAINTAINED. WILL CONT TO MONITOR PT CLOSELY.
[2020-02-02] MEDS: AZITHROMYCIN 250 MG TABLET PO SCH (21:39)
[2020-02-03] VITALS (7 sets, daily range): BP systolic 91–110; BP diastolic 63–76
--- NOTE | 2020-02-03 | NUR ---
RN NOTES FREQUENT ROUNDING DONE. PATIENT SLEEPING IN BED COMFORTABLY. STILL ON 8L OXYGEN VIA MASK, SATURATING >95%. NO ACUTE DISTRESS NOTED. WILL CONT TO MONITOR CLOSELY.
--- NOTE | 2020-02-03 07:00 | NUR ---
RN OPENING NOTES RECEIVED PATIENT IN BED, A/OX4, ABLE TO MAKE NEEDS KNOWN. NO ACUTE CHANGES THROUGHOUT SHIFT. STILL ON OXYGEN 8L VIA MASK, TOLERATING WELL, NO DISTRESS NOTED. ON TELE MONITOR SR WITH HR 60'S. IV SITE LEFT HAND 20G FLUSHING AND INTACT, SALINE LOCKED. SAFETY MEASURES IN PLACE; CALL LIGHT WITHIN REACH, SIDE RAILS UP X2, BED LOCKED AND IN LOWEST POSITION. ISOLATION PRECAUTIONS MAINTAINED. WILL CONT TO MONITOR PT CLOSELY. WILL ENDORSE TO AM RN FOR XIMENA. Addendum: 02/03/20 at 0709 by ALEX VICENTE RN CORRECTION: CLOSING NOTES
[2020-02-03 07:17] LABS: BASOPHILS % (AUTO) 0.1 % (0.0-2.0); EOSINOPHILS % (AUTO) 2.3 % (0.0-6.0); HEMATOCRIT 45 % (39-51); HEMOGLOBIN 15.4 g/dL (13.5-17.5); LYMPHOCYTES # (AUTO) 1.7 /CMM (0.8-4.8); LYMPHOCYTES % (AUTO) 22.7 % (20.0-44.0); MEAN CORPUSCULAR HGB CONC 35 g/dl (31.0-36.0); MEAN CORPUSCULAR VOLUME 87 fL (80-96); MONOCYTES # (AUTO) 0.5 /CMM (0.1-1.30); MONOCYTES % (AUTO) 6.9 % (2.0-12.0); NEUTROPHILS # (AUTO) 5.1 /CMM (1.8-8.9); PLATELET COUNT (AUTO) 323 /CMM (150-450); RED BLOOD CELL COUNT(AUTO) 5.12 MIL/uL (4.5-6.0); WHITE BLOOD COUNT (AUTO) 7.5 K/uL (4.3-11.0)
[2020-02-03 07:21] LABS: CALCIUM, SERUM 8.6 mg/dL (8.5-10.1); CREATININE 0.9 mg/dL (0.6-1.3); MAGNESIUM 2.4 mg/dL (1.8-2.4); PHOSPHORUS 4.7 mg/dL (2.5-4.9); POTASSIUM 3.8 mmol/L (3.5-5.1)
[2020-02-03] MEDS: BLOOD SUGAR DIAGNOSTIC 1 EACH STRIP IN SCH ×4 (07:30→22:26)
--- NOTE | 2020-02-03 08:02 | NUR ---
RN opening notes. Pt received sleeping in the bed comfortably, no s/s of distress at this time.pt is on 8 L of O2 via simple mask, Pt is A/Ox4, verbal and ambulatory,tele monitor showing sinus 64Bpm, skin is intact. pt is on regular diet tolerating well. pt has IV on L hand 20 G S/l. droplet and contact iso have been implemented and enforced for Covid 19.Safety measures have been implemented, call light Within rich, bed at the lowest position, side ralesx2 up, will continue to monitor for any changes.
[2020-02-03] MEDS: PANTOPRAZOLE 40 MG TABLET.DR PO SCH (08:20)
[2020-02-03] MEDS: CEFTRIAXONE 1 G in IV D5W 50 ML IV SCH (08:20)
[2020-02-03] MEDS: METFORMIN 500 MG TABLET PO SCH ×2 (08:20→17:00)
[2020-02-03] MEDS: methylPREDNISolone SOD SUCC 125 MG/2ML VIAL IV SCH (08:21)
[2020-02-03] MEDS: ENSURE ENLIVE 237 ML LIQUID (VANILLA) PO SCH ×3 (09:00→17:57)
[2020-02-03] MEDS ORDERED: POTASSIUM CHLORIDE 20 MEQ TAB.PRT.SR PO SCH (12:00)
[2020-02-03] MEDS: INSULIN REGULAR, HUMAN 100 UNIT/ML 3 ML VIAL SQ PRN ×3 (12:49→22:34)
--- NOTE | 2020-02-03 15:51 | NUR ---
RN NOTES PER DR. OLIVER, TITRATED DOWN OXYGEN FROM 8L TO 6L VIA SIMPLE FACE MASK, PT SATING AT 97% NO SOB OR RESP DISTRESS. WILL CONTINUE TO MONITOR FOR ANY CHANGES.
--- NOTE | 2020-02-03 16:27 | NUR ---
RN NOTES SPOKE ON THE PHONE WITH PHYSICIAN RELATIONS REPRESENTATIVE OF DEPARTMENT OF HEALTH SERVICES REGARDING PATIENT'S COVID-19 DIAGNOSIS
--- NOTE | 2020-02-03 19:19 | NUR ---
RN CLOSING NOTES PATIENT IS RESTING COMFORTABLY IN BED AT THIS TIME, NO S/SX OF DISTRESS. PT IS ON 6L OF O2 VIA FACE MASK. ATTEMPTED TO TITRATE DOWN TO 4L VIA NC HOWEVER PT DID NOT TOLERATE WELL. PT NEEDS HAVE BEEN MET, VITAL SIGNS ARE STABLE, NO ACUTE CHANGES OCCURRED THROUGHOUT THE SHIFT. CONTACT AND DROPLET ISO HAVE BEEN IMPLEMENTED AND ENFORCED. SAFETY MEASURES HAVE BEEN IMPLEMENTED, CALL LIGHT IS WITHIN REACH, BED IS IN LOWEST AND LOCKED POSITION, SIDE RAILS UP X2
--- NOTE | 2020-02-03 19:50 | NUR ---
RN NOTES RECEIVED PATIENT ASLEEP, EASILY AROUSABLE. NO S/SX OF DISTRESS. PT IS ON 6L OF O2 VIA FACE MASK.PT NEEDS HAVE BEEN MET, VITAL SIGNS ARE STABLE, NO SIGNS OF ACUTE DISTRESS NOTED. CONTACT AND DROPLET ISO HAVE BEEN IMPLEMENTED AND ENFORCED. SAFETY MEASURES HAVE BEEN IMPLEMENTED, CALL LIGHT IS WITHIN REACH, BED IS IN LOWEST AND LOCKED POSITION, SIDE RAILS UP X2 WILL CONTINUE TO MONITOR ACCORDINGLY.
[2020-02-04] VITALS (8 sets, daily range): BP systolic 102–115; BP diastolic 64–84
--- NOTE | 2020-02-04 06:37 | NUR ---
RN NOTES ABLE TO REST AND SLEPT AT INTERVALS, PATIENT IS RESTING COMFORTABLY IN BED AT THIS TIME, NO S/SX OF DISTRESS. PT IS ON 6L OF O2 VIA FACE MASK. VITAL SIGNS ARE STABLE, NO ACUTE CHANGES OCCURRED THROUGHOUT THE SHIFT. CONTACT AND DROPLET ISO HAVE BEEN IMPLEMENTED AND ENFORCED. SAFETY MEASURES HAVE BEEN IMPLEMENTED, CALL LIGHT IS WITHIN REACH, BED IS IN LOWEST AND LOCKED POSITION, SIDE RAILS UP X2. WILL ENDORSE TO AM NURSE FOR CONTINUITY OF CARE.
[2020-02-04 07:31] LABS: BASOPHILS % (AUTO) 0.3 % (0.0-2.0); EOSINOPHILS % (AUTO) 3.3 % (0.0-6.0); HEMATOCRIT 47 % (39-51); HEMOGLOBIN 15.7 g/dL (13.5-17.5); LYMPHOCYTES # (AUTO) 1.9 /CMM (0.8-4.8); LYMPHOCYTES % (AUTO) 25.7 % (20.0-44.0); MEAN CORPUSCULAR HGB CONC 34 g/dl (31.0-36.0); MEAN CORPUSCULAR VOLUME 87 fL (80-96); MONOCYTES # (AUTO) 0.5 /CMM (0.1-1.30); MONOCYTES % (AUTO) 7.5 % (2.0-12.0); NEUTROPHILS # (AUTO) 4.6 /CMM (1.8-8.9); NEUTROPHILS % (AUTO) 63.2 % (43.0-81.0); PLATELET COUNT (AUTO) 320 /CMM (150-450); RED BLOOD CELL COUNT(AUTO) 5.33 MIL/uL (4.5-6.0); WHITE BLOOD COUNT (AUTO) 7.2 K/uL (4.3-11.0)
[2020-02-04 07:37] LABS: CALCIUM, SERUM 8.6 mg/dL (8.5-10.1); CREATININE 0.9 mg/dL (0.6-1.3); MAGNESIUM 2.3 mg/dL (1.8-2.4); PHOSPHORUS 4.5 mg/dL (2.5-4.9)
--- NOTE | 2020-02-04 07:45 | NUR ---
TELE/RN NOTE THE PATIENT A/O X3. ON OXYGEN AT 6L/MIN VIA NASAL CANNULA AND DENIES SOB. DENIES PAIN. BREATHING EVEN AND UNLABORED. TELE BOX READING IS SR 73. L HAND G 20 PATENT AND SALINE LOCKED. PATIENT IN STABLE CONDITION. WILL CONTINUE TO MONITOR.
[2020-02-04] MEDS: METFORMIN 500 MG TABLET PO SCH ×2 (08:42→16:44)
[2020-02-04] MEDS: methylPREDNISolone SOD SUCC 125 MG/2ML VIAL IV SCH (08:42)
[2020-02-04] MEDS: PANTOPRAZOLE 40 MG TABLET.DR PO SCH (08:42)
[2020-02-04] MEDS: ENSURE ENLIVE 237 ML LIQUID (VANILLA) PO SCH ×3 (09:00→16:55)
[2020-02-04] MEDS: BLOOD SUGAR DIAGNOSTIC 1 EACH STRIP IN SCH ×4 (09:11→21:14)
--- NOTE | 2020-02-04 12:30 | NUR ---
TELE/RN NOTE THE PATIENT REFUSED BLOOD SUGAR CHECK DESPITE EXPLAINING RISKS AND BENEFITS.
[2020-02-04] MEDS: INSULIN REGULAR, HUMAN 100 UNIT/ML 3 ML VIAL SQ PRN (17:30)
--- NOTE | 2020-02-04 18:34 | NUR ---
TELE/RN NOTE THE PATIENT IS ALERT AND ORIENTED X4. DENIES PAIN. RECEIVING OXYGEN AT 6L/MIN VIA NASAL CANNULA AND SATURATION IS AT 94%. DENIES SOB. RESPIRATION REGULAR AND UNLABORED. TELE BOX READING IS SR 75. THE PATIENT IN NO APPARENT DISTRESS. LEFT HAND G 20 PATENT AND SALINE LOCKED. BED LOW AND LOCKED. SIDE RAILS UP X3. CALL LIGHT WITHIN REACH. WILL ENDORSE TO STOCK ORDER LISTER.
--- NOTE | 2020-02-04 19:45 | NUR ---
LINE PREP COOK OPENING NOTES RECEIVED PATIENT RESTING IN BED COMFORTABLY; A/OX4; PATIENT ON 6L NC, TOLERATING WELL; NO S/S OF SOB NOTED; TELE MONITOR READS SINUS RHYTHM WITH 75BPM; L HAND @ 20 SL INTACT AND PATENT; FLUSHING WELL, NO S/S OF REDNESS OR INFILTRATION NOTED; SAFETY PRECAUTIONS IN PLACE; BED LOCKED IN LOW POSITION; SIDE RAILS X2; CALL LIGHT WITHIN REACH; WILL CONTINUE TO MONITOR
--- NOTE | 2020-02-04 21:11 | NUR ---
FRONT DESK PERSON NOTES BS 142, PATIENT REPORTED HE HAS NO APPETITE, REFUSING INSULIN COVERAGE; PATIENT DOES NOT WANT HIS BS TO DROP DURING THE NIGHT; CHARGE NURSE AWARE, WILL CONT TO MONITOR
[2020-02-05] VITALS (7 sets, daily range): BP systolic 92–109; BP diastolic 62–76
--- NOTE | 2020-02-05 05:16 | NUR ---
BOARD WINDER NOTES PATIENT BP 96/68, PATIENT HAS NO IV FLUIDS; PATIENT WAS INSTRUCTED TO DRINK WATER/FLUIDS TO KEEP HYDRATED; PATIENT AWARE AND WILL DRINK FLUIDS WHEN HE CAN; PATIENT WANTS TO REST/SLEEP; PATIENT REPORTED FEELING SAD DUE TO LOSS OF SIBLING; PATIENT ALSO HAS NOT HAD A GOOD APPETITE THROUGHOUT HOSPITALIZATION; PATIENT REQUESTING FRUITS; WILL INFORM ONCOMING SHIFT REGARDING PATIENT APPETITE; WILL CONT TO MONITOR
--- NOTE | 2020-02-05 06:38 | NUR ---
INPUT OUTPUT CLERK CLOSING NOTES PATIENT RESTING IN BED COMFORTABLY; A/O X4; NO SOB NOTED; TOLERATING 6L MASK; NO DISTRESS NOTED AT THIS TIME; L HAND # 20 SL INTACT AND PATENT; FLUSHING WELL; TELE MONITOR READS SINUS RHYTHM WITH 73 BPM; ALL NEEDS RENDERED; PATIENT VERBALIZED HE WILL TRY TO EAT/DRINK MORE TODAY, WILL INFORM ONCOMING NURSE; SAFETY PRECAUTIONS IN PLACE; ISOLATION PRECAUTIONS MAINTAINED; BED LOCKED IN LOW POSITION; SIDE RAILS X2; CALL LIGHT WITHIN REACH; WILL ENDORSE XIMENA TO ONCOMING NURSE
[2020-02-05 07:06] LABS: BASOPHILS % (AUTO) 0.6 % (0.0-2.0); EOSINOPHILS % (AUTO) 2.5 % (0.0-6.0); HEMATOCRIT 48 % (39-51); HEMOGLOBIN 16.1 g/dL (13.5-17.5); LYMPHOCYTES # (AUTO) 1.7 /CMM (0.8-4.8); LYMPHOCYTES % (AUTO) 26.7 % (20.0-44.0); MEAN CORPUSCULAR HGB CONC 34 g/dl (31.0-36.0); MEAN CORPUSCULAR VOLUME 87 fL (80-96); MONOCYTES # (AUTO) 0.5 /CMM (0.1-1.30); MONOCYTES % (AUTO) 8.5 % (2.0-12.0); NEUTROPHILS # (AUTO) 3.8 /CMM (1.8-8.9); NEUTROPHILS % (AUTO) 61.7 % (43.0-81.0); PLATELET COUNT (AUTO) 310 /CMM (150-450); RED BLOOD CELL COUNT(AUTO) 5.47 MIL/uL (4.5-6.0); WHITE BLOOD COUNT (AUTO) 6.2 K/uL (4.3-11.0)
[2020-02-05 07:14] LABS: CALCIUM, SERUM 8.8 mg/dL (8.5-10.1); CREATININE 0.8 mg/dL (0.6-1.3); MAGNESIUM 2.2 mg/dL (1.8-2.4); PHOSPHORUS 4.5 mg/dL (2.5-4.9); POTASSIUM 3.9 mmol/L (3.5-5.1)
--- NOTE | 2020-02-05 07:30 | NUR ---
Tele/RN Opening Note Received patient AO X 4, able to responds all stimuli. Denies pain or any discomfort, skin is warm to touch, kept clean/dry. Pt. was on the phone talking with someone, no appetite. Respiratory even and unlabored on oxygen at 6LPM with mask, noticed coughing occasionally. Keep low position of the bed with locked wheel and elevated head of bed for secure air way.Encouraged pt to intake oral fluid as tolerated. Call light within reach, will continue to monitor.
[2020-02-05] MEDS: BLOOD SUGAR DIAGNOSTIC 1 EACH STRIP IN SCH ×4 (07:55→22:49)
[2020-02-05] MEDS: METFORMIN 500 MG TABLET PO SCH ×2 (08:21→17:08)
[2020-02-05] MEDS: PANTOPRAZOLE 40 MG TABLET.DR PO SCH (08:21)
[2020-02-05] MEDS: methylPREDNISolone SOD SUCC 125 MG/2ML VIAL IV SCH (08:21)
[2020-02-05] MEDS: INSULIN REGULAR, HUMAN 100 UNIT/ML 3 ML VIAL SQ PRN ×3 (08:23→17:06)
[2020-02-05] MEDS: ENSURE ENLIVE 237 ML LIQUID (VANILLA) PO SCH ×3 (08:24→17:08)
--- NOTE | 2020-02-05 18:30 | NUR ---
Tele/RN Closing note Patient remains AO X 4 Lithuanian speaking able to responds all stimuli. Pt. was on the phone all day talking with family and friends. Denies pain or any discomfort, skin is warm to touch, kept clean/dry. Respiratory even and unlabored on oxygen at 5LPM with n/c and tolerated, noticed dry coughing occasionally. Keep low position of the bed with locked wheel and elevated head of bed for secure air way. Encouraged pt to oral fluid intake as tolerated. Call light within reach, will endorse to gum dipper.
[2020-02-06] VITALS (8 sets, daily range): BP systolic 95–109; BP diastolic 65–76
[2020-02-06 06:14] LABS: BASOPHILS # (AUTO) 0.1 /CMM (0.0-0.2); BASOPHILS % (AUTO) 1.6 % (0.0-2.0); EOSINOPHILS % (AUTO) 2.3 % (0.0-6.0); HEMATOCRIT 48 % (39-51); HEMOGLOBIN 16.3 g/dL (13.5-17.5); LYMPHOCYTES % (AUTO) 30.2 % (20.0-44.0); MEAN CORPUSCULAR HGB CONC 34 g/dl (31.0-36.0); MEAN CORPUSCULAR VOLUME 86 fL (80-96); MONOCYTES # (AUTO) 0.6 /CMM (0.1-1.30); MONOCYTES % (AUTO) 9.3 % (2.0-12.0); NEUTROPHILS # (AUTO) 3.7 /CMM (1.8-8.9); NEUTROPHILS % (AUTO) 56.6 % (43.0-81.0); PLATELET COUNT (AUTO) 301 /CMM (150-450); WHITE BLOOD COUNT (AUTO) 6.5 K/uL (4.3-11.0)
[2020-02-06 07:10] LABS: BILIRUBIN,DIRECT 0.1 mg/dL (0.0-0.2); BILIRUBIN,TOTAL 0.9 mg/dL (0.2-1.0); TOTAL PROTEIN, SERUM 6.7 g/dL (6.4-8.2)
[2020-02-06 07:21] LABS: CALCIUM, SERUM 8.5 mg/dL (8.5-10.1); CREATININE 0.8 mg/dL (0.6-1.3); MAGNESIUM 2.1 mg/dL (1.8-2.4); PHOSPHORUS 4.8 mg/dL (2.5-4.9); POTASSIUM 3.7 mmol/L (3.5-5.1)
[2020-02-06] MEDS: BLOOD SUGAR DIAGNOSTIC 1 EACH STRIP IN SCH ×4 (07:30→22:54)
--- NOTE | 2020-02-06 07:44 | NUR ---
TELE/RN OPENING NOTES RECEIVED PATIENT ON BED. PATIENT IN NO APPARENT RESPIRATORY DISTRESS NOTED. PATIENT ALERT ORIENTED X4. DENIES ANY PAIN AT THIS TIME. ON TELE MONITOR IN PLACED WITH READING SR 77. BED IN LOWEST POSITION SIDE RAILS UP X2. CALL LIGHT WITH IN REACH.WILL CONTINUE TO MONITOR.
[2020-02-06] MEDS: METFORMIN 500 MG TABLET PO SCH ×2 (08:45→16:51)
[2020-02-06] MEDS: PANTOPRAZOLE 40 MG TABLET.DR PO SCH (08:45)
[2020-02-06] MEDS: INSULIN REGULAR, HUMAN 100 UNIT/ML 3 ML VIAL SQ PRN ×4 (08:48→23:05)
[2020-02-06] MEDS: ENSURE ENLIVE 237 ML LIQUID (VANILLA) PO SCH ×3 (08:49→16:40)
--- NOTE | 2020-02-06 11:47 | NUR ---
TELE/RN NOTES PATIENT REFUSED TO DRINK ENSURE EXPLAINED THE RISK AND BENEFITS. "I DON'T WANT THE TASTE" PER PATIENT.
--- NOTE | 2020-02-06 12:19 | NUR ---
TELE/RN NOTES BS 137MG/DL ADMINISTERED INSULIN 2 UNIT
--- NOTE | 2020-02-06 17:25 | NUR ---
TELE/RN NOTES BS 235MG/DL 4 UNIT INSULIN ADMINISTERED
--- NOTE | 2020-02-06 18:43 | NUR ---
PATIENT IS ON BED. PATIENT IS ALERT AND ORIENTED X 4. PATIENT IN NO APPARENT DISTRESS NOTED. DENIES ANY PAIN AT THIS TIME. PATIENT WITH NASAL CANNULA IN PLACED AT 6 L/MIN. PATIENT WITH TELE MONITOR AT SINUS RHYTHM 98 B/MIN. IV ACCESS IN PLACED AT LEFT HAND #20 G PATENT AND INTACT. SEEN AND EXAMINED BY MD WITH ORDERS MADE AND CARRIED OUT. ALL DUE MEDS WAS GIVEN. SAFETY PRECAUTION IN PLACE. CHECKED PATIENT EVERY 2 HOURS. KEPT PATIENT CLEAN AND DRY THE WHOLE SHIFT. BED IS IN LOWEST POSITION, SIDE RAILS UP X2. CALL LIGHT WITHIN REACH. WILL ENDORSED TO REMOTE CODERS FOR XIMENA.
[2020-02-07] VITALS: BP 92/65
[2020-02-07 04:00] VITALS: BP 100/71
[2020-02-07 07:09] LABS: CALCIUM, SERUM 8.4 mg/dL (8.5-10.1); CREATININE 0.9 mg/dL (0.6-1.3); POTASSIUM 3.9 mmol/L (3.5-5.1)
--- NOTE | 2020-02-07 07:25 | NUR ---
HEAD LOADER OPENING NOTES PATIENT IN BED RESTING COMFORTABLY. PATIENT IN NO ACUTE DISTRESS. NO SOB NOTED. PATIENT BREATHING IS EVEN AND UNLABORED. PATIENT ON CARDIAC MONITORING READING SINUS RHYTHM HR 70. PATIENT STATES NO PAIN AT THIS TIME. SAFETY PRECAUTIONS IN PLACE. PATIENT BED IS LOCKED AND IN LOWEST POSITION. CALL LIGHT WITHIN REACH. WILL CONTINUE TO MONITOR.
[2020-02-07] MEDS: BLOOD SUGAR DIAGNOSTIC 1 EACH STRIP IN SCH ×4 (07:41→21:42)
[2020-02-07 08:00] VITALS: BP 105/75
[2020-02-07] MEDS: ENSURE ENLIVE 237 ML LIQUID (VANILLA) PO SCH ×3 (08:05→16:36)
[2020-02-07] MEDS: PANTOPRAZOLE 40 MG TABLET.DR PO SCH (08:05)
[2020-02-07] MEDS: METFORMIN 500 MG TABLET PO SCH ×2 (08:06→16:36)
[2020-02-07] MEDS: INSULIN REGULAR, HUMAN 100 UNIT/ML 3 ML VIAL SQ PRN ×4 (08:08→21:45)
[2020-02-07 12:00] VITALS: BP 89/67
[2020-02-07 16:00] VITALS: BP 96/64
--- NOTE | 2020-02-07 18:18 | NUR ---
WATER SOFTENER SERVICER CLOSING NOTES PATIENT IN BED RESTING COMFORTABLY. PATIENT IN NO ACUTE DISTRESS. NO SOB NOTED. PATIENT BREATHING IS EVEN AND UNLABORED. PATIENT BREATHING ON OXYGEN 2L NC SATURATING >95% SPO2. PATIENT ON CARDIAC MONITORING READING SINUS RHYTHM HR 82. PATIENT STATES NO PAIN AT THIS TIME. PATIENT KEPT CLEAN, DRY AND COMFORTABLE THROUGHOUT SHIFT. NEEDS AND CONCERNS ADDRESSED. SAFETY PRECAUTIONS IN PLACE. PATIENT BED IS LOCKED AND IN LOWEST POSITION. CALL LIGHT WITHIN REACH. WILL ENDORSE CARE TO PM SHIFT FOR XIMENA.
--- NOTE | 2020-02-07 19:30 | NUR ---
TELE1 RN NOTES RECEIVED ON BED A/O X4,BREATHING REGULAR,NOT IN ANY FORM OF DISTRESS.NOTED ON AND OFF NON PRODUCTIVE COUGH.ISOLATION PRECAUTION FOR COVID 19 POSITIVE.SALINE LOCK LEFT HAND INTACT AND PATENT.CALL LIGHT IN REACH,NEEDS ANTICIPATED.
[2020-02-07 20:00] VITALS: BP 98/70
--- NOTE | 2020-02-07 20:01 | NUR ---
TELE1 RN NOTES SR-76 ON TELE MONITOR
--- NOTE | 2020-02-07 21:51 | NUR ---
TELE1 RN NOTES ACCU-CHECK BLOOD SUGAR CHECK 139,COVERED WITH HUMULIN R 2 UNITSBPER SLIDING SCALE.
[2020-02-08] VITALS: BP 102/68
[2020-02-08 04:00] VITALS: BP 95/68
--- NOTE | 2020-02-08 06:16 | NUR ---
TELE1 RN NOTES REMAINS AFEBRILE THRU OUT SHIFT,NO SOB,O2 SAT WITH IN NORMAL LIMITS AT 2L/NC.IN NO ACUTE DISTRESS.
[2020-02-08 06:26] LABS: BASOPHILS % (AUTO) 0.8 % (0.0-2.0); EOSINOPHILS % (AUTO) 2.5 % (0.0-6.0); HEMATOCRIT 44 % (39-51); HEMOGLOBIN 15.1 g/dL (13.5-17.5); LYMPHOCYTES # (AUTO) 1.6 /CMM (0.8-4.8); LYMPHOCYTES % (AUTO) 32.6 % (20.0-44.0); MEAN CORPUSCULAR HGB CONC 34 g/dl (31.0-36.0); MEAN CORPUSCULAR VOLUME 86 fL (80-96); MONOCYTES # (AUTO) 0.5 /CMM (0.1-1.30); MONOCYTES % (AUTO) 9.3 % (2.0-12.0); NEUTROPHILS # (AUTO) 2.7 /CMM (1.8-8.9); NEUTROPHILS % (AUTO) 54.8 % (43.0-81.0); PLATELET COUNT (AUTO) 228 /CMM (150-450); RED BLOOD CELL COUNT(AUTO) 5.12 MIL/uL (4.5-6.0)
[2020-02-08 06:59] LABS: CALCIUM, SERUM 8.4 mg/dL (8.5-10.1); CREATININE 0.9 mg/dL (0.6-1.3); POTASSIUM 4.2 mmol/L (3.5-5.1)
--- NOTE | 2020-02-08 07:50 | NUR ---
INFORMATION CLERK BROKERAGE NOTES PATIENT AWAKE IN BED, NO RESPIRATORY DISTRESS ON RA SPO2 AT 96%. NO C/O PAIN AT THIS TIME. SKIN WARM TO TOUCH, IV ACCESS SITE INTACT AND PATENT. SAFETY PRECAUTIONS IN PLACE. PATIENT'S NEEDS ATTENDED, BED ON LOWEST LOCKED POSITION, CALL LIGHT WITHIN REACH. WILL ENDORSE TO ONCOMING NURSE.
[2020-02-08 08:00] VITALS: BP_SYST 91; BP_SYST 94; BP_DIAS 59
[2020-02-08] MEDS: BLOOD SUGAR DIAGNOSTIC 1 EACH STRIP IN SCH ×4 (09:14→22:24)
[2020-02-08] MEDS: PANTOPRAZOLE 40 MG TABLET.DR PO SCH (09:14)
[2020-02-08] MEDS: METFORMIN 500 MG TABLET PO SCH ×2 (09:14→16:24)
[2020-02-08] MEDS: ENSURE ENLIVE 237 ML LIQUID (VANILLA) PO SCH ×3 (09:15→16:25)
[2020-02-08] MEDS: INSULIN REGULAR, HUMAN 100 UNIT/ML 3 ML VIAL SQ PRN ×3 (09:35→22:38)
[2020-02-08 12:00] VITALS: BP_SYST 106; BP_SYST 97; BP_DIAS 54; BP_DIAS 76
[2020-02-08 16:00] VITALS: BP 94/54
--- NOTE | 2020-02-08 18:25 | NUR ---
CONSTRUCTION SECRETARY NOTES PATIENT AWAKE IN BED, ON THE PHONE. NO RESPIRATORY DISTRESS ON RA SPO2 AT 98%. NO C/O PAIN AT THIS TIME. SKIN WARM TO TOUCH, IV ACCESS SITE INTACT AND PATENT. SAFETY PRECAUTIONS IN PLACE. PATIENT'S NEEDS ATTENDED, BED ON LOWEST LOCKED POSITION, CALL LIGHT WITHIN REACH. WILL ENDORSE TO ONCOMING NURSE.
[2020-02-08] MEDS: GUAIFENESIN/D-METHORPHAN HB 5 ML UDC PO PRN (18:40)
--- NOTE | 2020-02-08 19:28 | NUR ---
TELE1 RN NOTES RECEIVED ON BED A/O X4,BREATHING REGULAR,NOT IN ANY FORM OF DISTRESS,SALINE LOCK LEFT HAND INTACT AND PATENT.DENIES SHORTNESS OF BREATH,O2 IN USED AT 2L/NC.CALL LIGHT IN REACH,NEEDS ANTICIPATED.
[2020-02-08 20:00] VITALS: BP 97/69
--- NOTE | 2020-02-08 22:30 | NUR ---
TELE1 RN NOTES ACCU-CHECK BLOOD SUGAR CHECK 217,COVERED WITH HUMULIN R 4 UNITS PER SLIDING SCALE.
[2020-02-09] VITALS: BP 91/57
[2020-02-09 04:00] VITALS: BP 95/64
[2020-02-09 06:13] LABS: BASOPHILS # (AUTO) 0.1 /CMM (0.0-0.2); BASOPHILS % (AUTO) 1.3 % (0.0-2.0); EOSINOPHILS % (AUTO) 2.2 % (0.0-6.0); HEMATOCRIT 46 % (39-51); HEMOGLOBIN 15.4 g/dL (13.5-17.5); LYMPHOCYTES # (AUTO) 1.8 /CMM (0.8-4.8); LYMPHOCYTES % (AUTO) 28.2 % (20.0-44.0); MEAN CORPUSCULAR HGB CONC 34 g/dl (31.0-36.0); MEAN CORPUSCULAR VOLUME 88 fL (80-96); MONOCYTES # (AUTO) 0.6 /CMM (0.1-1.30); MONOCYTES % (AUTO) 8.7 % (2.0-12.0); NEUTROPHILS # (AUTO) 3.7 /CMM (1.8-8.9); NEUTROPHILS % (AUTO) 59.6 % (43.0-81.0); PLATELET COUNT (AUTO) 203 /CMM (150-450); WHITE BLOOD COUNT (AUTO) 6.3 K/uL (4.3-11.0)
--- NOTE | 2020-02-09 06:16 | NUR ---
PHYSICIAN OPHTHALMOLOGIST NOTES SLEPT WELL AT NIGHT.REMAINS HYPOTENSIVE AT SBP 0F 95.CHEST X-RAY DONE BY RADIOLOGY TODAY.AFEBRILE.IN NO ACUTE DISTRESS.
[2020-02-09 06:34] LABS: CALCIUM, SERUM 8.2 mg/dL (8.5-10.1); CREATININE 0.9 mg/dL (0.6-1.3)
[2020-02-09 08:00] VITALS: BP 103/65
--- NOTE | 2020-02-09 08:00 | NUR ---
TRUST VAULT CUSTODIAN NOTES PT RECEIVED RESTING IN BED COMFORTABLY. A/A/O X3. NO S/S OF RESPIRATORY DISTRESS, UNLABORED BREATHING, VSS, FIBERGLASS FABRICATOR SHOWING SR IN THE 60S. NO SIGNS OF ACUTE DISTRESS NOTED. PT IS AMBULATORY W STEADY GAIT. SKIN INTACT. 20 G ON L HAND, PATENT, C/D/I. FLUSHES WELL. PT SATING 98 ON RA. SAFETY MEASURES IMPLEMENTED, BED AT LOWEST POSITION, LOCKED, SIDE RAILS UPX2, CALL LIGHT WITHIN REACH. WILL CONTINUE TO MONITOR PT FOR CHANGES.
[2020-02-09] MEDS ORDERED: METF-440 PO (08:24)
[2020-02-09] MEDS: METFORMIN 500 MG TABLET PO SCH (08:26)
[2020-02-09] MEDS: PANTOPRAZOLE 40 MG TABLET.DR PO SCH (08:26)
[2020-02-09] MEDS: ENSURE ENLIVE 237 ML LIQUID (VANILLA) PO SCH ×2 (08:27→12:35)
[2020-02-09] MEDS: BLOOD SUGAR DIAGNOSTIC 1 EACH STRIP IN SCH ×2 (08:42→12:35)
[2020-02-09] MEDS: INSULIN REGULAR, HUMAN 100 UNIT/ML 3 ML VIAL SQ PRN (08:44)
[2020-02-09 12:00] VITALS: BP 96/65
--- NOTE | 2020-02-09 15:09 | NUR ---
AUDIOPROSTHOLOGIST NOTE PT WAS DC HOME TODAY UPON DISCHARGE ASSESSMENT, VSS, NO SIGNS OF ACUTE DISTRESS NOTED, DISCHARGE INSTRUCTION GIVEN PERTAINING DX, BELONGING GIVEN BACK TO PT, PAPER WORK SIGNED, SKIN INTACT. COMPLETED MED RECON SENT RX TO PHARMACY.PT LEFT UNIT VIA WHEELCHAIR PICKED UP BY AT [id number].
== END 2020-02-09 14:18 | disposition home or self-care (01) | DRG 137 ==
LOC: ER 14:38 → ICUOV 17:55 → TELE1 18:41 → ICU 01-29 19:36 → TELE-TD 02-01 19:25 → TELE1 02-03 09:13
PROVIDERS: ATTEND Family Medicine
DX: U07.1 COVID-19 (principal); J96.01 Acute respiratory failure with hypoxia; N17.0 Acute kidney failure with tubular necrosis; E44.0 Moderate protein-calorie malnutrition; J12.89 Other viral pneumonia; B95.1 Streptococcus, group B, as the cause of diseases classified elsewhere; E11.9 Type 2 diabetes mellitus without complications; E87.6 Hypokalemia; N39.0 Urinary tract infection, site not specified; Z68.35 Body mass index [BMI] 35.0-35.9, adult; R74.0 Nonspecific elevation of levels of transaminase and lactic acid dehydrogenase [LDH]
CPT/HCPCS: 36415; 36600; 71045-TC; 80048-TC; 80053-TC; 80061-TC; 80076-TC; 81000-TC; 82550-TC; 82728-TC; 82803-TC; 82962-TC; 83605-TC; 83615-TC; 83735-TC; 83880; 84100-TC; 84443-TC; 84484-TC; 85025-TC; 85378-TC; 85385-TC; 85730-TC; 86140-TC; 86480; 87040-TC; 87081-TC; 87086-TC; G0378; J0696; J1200; J1815; J2001; J2270; J2405; J2704; J2930; J3262; J7030; J7040; J7050; J7060